=== PATIENT | female | born 1975 | race Caucasian/White ===

== ENCOUNTER → 2018-10-02 | Outpatient (CLI) | payer BC | LOC: MC.RAD 07:15 | DX: Z12.31 Encounter for screening mammogram for malignant neoplasm of breast (principal); N63.20 Unspecified lump in the left breast, unspecified quadrant ==

== ENCOUNTER → 2018-10-06 | Outpatient (CLI) | payer BC | LOC: MC.RAD 14:04 | DX: N60.02 Solitary cyst of left breast (principal) ==

== ENCOUNTER 2020-03-19 12:17 | Emergency (ER) | payer BC ==
[~2020-03-19] VITALS: Ht 157.5 cm; Wt 95.5 kg
[2020-03-19 12:22] VITALS: BP 132/93; TEMP 98.3
[2020-03-19 13:30] VITALS: PULSE 84
== END 2020-03-19 13:31 | disposition home or self-care (01) ==
LOC: COL.ER 12:17
DX: Z20.3 Contact with and (suspected) exposure to rabies (principal); Z23 Encounter for immunization
CPT/HCPCS: 90375

== ENCOUNTER 2020-04-02 17:04 | Outpatient (RCR) | payer BC ==
[2020-04-02 16:49] VITALS: BP 134/80; PULSE 69; TEMP 98.5
== END 2020-06-17 | disposition still patient (30) ==
LOC: COL.ER
DX: Z72.9 Problem related to lifestyle, unspecified (principal); Z23 Encounter for immunization; Z20.3 Contact with and (suspected) exposure to rabies

== ENCOUNTER → 2021-08-20 | Outpatient (CLI) | payer BC | LOC: MC.RAD 16:57 | DX: Z12.31 Encounter for screening mammogram for malignant neoplasm of breast (principal) ==

== ENCOUNTER → 2023-07-12 | Outpatient (CLI) | payer BC | LOC: MC.RAD 08:31 → COL.RAD 08:45 | DX: Z12.31 Encounter for screening mammogram for malignant neoplasm of breast (principal); N63.20 Unspecified lump in the left breast, unspecified quadrant ==